=== PATIENT | female | born 1990 | race Caucasian/White ===

== ENCOUNTER 2025-04-22 19:12 | Emergency (ER) | payer OTHER, SELFPAY ==
[2025-04-22 19:15] VITALS: BP 149/99
--- NOTE | 2025-04-22 19:42 | ED.GENMED ---
History of Present Illness
General
Chief Complaint: Ear Problem
Source: patient
Exam Limitations: none
Time Seen by Provider: 04/22/25 19:23
Nursing documentation reviewed up to this point in time: agreed with
History of Present Illness
History of Present Illness:
35-year-old female with history as noted presents to the ER for evaluation of left ear/facial pain. Patient reports that she started with URI last week (cough, congestion) and about 3 days ago started with bilateral ear pain. She says that today
she went to see her primary doctor earlier today and was diagnosed with bilateral ear infection and was started on amoxicillin. She says that as the day went on she started to have worsening pain particular in the left ear and left side of her
face/jaw. She describes an intense shooting pain from the ear and anterior towards the jaw on the left side. No clear trigger for this abrupt worsening. Has not responded well to Tylenol. Came to the ER for assessment. She denies sore throat.
She denies any similar symptoms in the past.
Past History
Past History
ED Past Medical History: Asthma, Other and Other
ED Past Surgical History: Tonsilectomy
Social History
Tobacco: Non-smoker
Alcohol: Occasional
Drug: Marijuana (THC tincture)
Personal:
Living: with family
Employment: Employed
Review of Systems
Review of Systems
All Other Systems: ROS reviewed and negative except as documented in HPI and ROS
Constitutional: Denies fever or chills
EENT: Reports other (Ear pain); Denies sore throat or runny nose
Respiratory: Denies cough
Cardiac: Denies chest pain
Neurological: Denies dizzy or headache
Phy Exam
Physical Exam
Physical Exam:
General: Awake, alert, oriented x3; no acute distress
Head: Normocephalic, atraumatic
Eyes: Conjunctiva normal, EOMI
Ears: External ears appear normal bilaterally without any drainage or erythema/swelling; no tenderness of the mastoid processes bilaterally; right ear canal is clear, some slight bulging of the TM on the right but positive light reflex and no
erythema; left ear canal clear, more significant bulging noted with appreciable effusion, slight erythema, no perforation and positive light reflex
Throat: Airway intact, handling secretions, midline uvula, no oropharyngeal erythema; good dentition
Face: No rash noted in area of concern, mild tenderness over the left TMJ and along the mandibular line but no appreciable swelling, erythema, masses noted
Neck: Trachea midline, supple without meningismus, no appreciable adenopathy
Lungs: Clear to auscultation bilaterally, no wheezing, rales, rhonchi
Heart: Regular rate
Neuro: Cranial nerves intact, speech fluid
Skin: No rash noted
Extremities: Warm and well-perfused
Scores
Heart Failure Risk
Heart Failure Risk Score: Not Applicable
Heart Score for Chest Pain Patients
STEMI patient?: Not applicable
Withdrawal Assessment of Alcohol
Withdrawal Assessment Completed?: Not applicable
Course
Orders/Labs/Results
Orders:
Orders
04/22/25 19:40
Prednisone [Deltasone] 50 mg PO NOW STA
Tramadol HCl [Ultram] 50 mg PO NOW STA
04/22/25 20:38
Ketorolac [Toradol] 30 mg IM NOW STA
Vital Signs
Initial and Last Documented VS:
Initial Vital Signs
Temp Pulse Resp BP Pulse Ox
37.1 C 103 16 149/99 98
04/22/25 19:15 04/22/25 19:15 04/22/25 19:15 04/22/25 19:15 04/22/25 19:15
Last Documented Vital Signs
Temp Pulse Resp BP Pulse Ox
37.1 C 87 18 123/81 98
04/22/25 19:15 04/22/25 20:38 04/22/25 20:38 04/22/25 20:38 04/22/25 20:38
MDM/Problems Addressed
Differential Diagnosis Includes:
Otitis media, eustachian tube dysfunction, TMJ, trigeminal neuralgia, early shingles
MDM/Problems Addressed:
35-year-old female presents to the ER with bilateral ear pain worsening on the left side with radiation towards the jaw. Recently had URI, earlier today diagnosed with bilateral ear infection by primary and started on amoxicillin, worsening
left-sided pain with radiation towards the jaw which prompted ER referral. Vitals and exam as above. Agree with diagnosis of otitis media, agree with antibiotics. No signs of perforation, suspect jaw pain referred from left ear. Will treat
symptomatically. Unfortunately patient has history of gastric bypass so we will try to avoid NSAIDs. Has not responded well to Tylenol. Allergic to oxycodone. Can trial tramadol, trial steroids.
Patient still quite symptomatic after initial round of medication�will trial one-time dose of Toradol.
Patient feeling better after treatment here. Clinical exam stable. Stable for discharge to follow-up with ENT. Spoke about follow-up plan and return precautions, all questions answered.
*Pulse Oximetry
SaO2: 98
Oxygen Mode of Delivery: Room air
Patient hypoxic: no (98%)
*Critical Care Note
Total Time (30-74mins, 75-104mins- exclusive of procedures): Not Applicable
Data Reviewed
Source: patient and records
ED Attending Note
-
Portions of this chart may have been created with voice recognition software.� Occasional wrong word or��sound alike� substitutions may have occurred due to the inherent limitations of voice recognition software.
Discharge Plan
Departure
Patient Disposition: Home (Routine Discharge)
Date of Disposition: 04/22/25
Time of Disposition: 21:39
Patient with high blood pressure during this ER visit?: Yes
Discharge Problem:
Otitis media, Pain in lower jaw
Instructions: Serous Otitis Media (DC)
Prescriptions:
New
prednisone 10 mg Tablet
See Rx Instructions .ROUTE .COMPLEX Qty: 45 0RF
Rx Instructions:
Take By Mouth:
50 mg daily x3 days, 40 mg daily x3 days,
30 mg daily x3 days, 20 mg daily x3 days,
10 mg daily x3 days
acetaminophen-codeine 300-15 mg tablet
1 tab PO Q4HPRN PRN (Reason: pain) Qty: 10 0RF
No Action
omeprazole 20 MG capsule,delayed release(DR/EC)
20 mg PO DAILY
bupropion HCl 300 MG tablet extended release 24 hr
450 mg PO DAILY
lisdexamfetamine [Vyvanse] 30 MG capsule
30 mg PO DAILY
cholecalciferol (vitamin D3) [Vitamin D3] 50 MCG capsule
50 mcg PO DAILY
topiramate [Qudexy XR] 100 MG capsule,sprinkle,ER 24hr
100 mg PO DAILY
cyanocobalamin (vitamin B-12) 2,500 MCG tablet,chewable
2,500 mcg PO DAILY
ondansetron 4 mg tablet,disintegrating
4 mg PO TID PRN (Reason: nausea and vomiting) Qty: 10 0RF
Referrals:
Mehul Alarcon MD [Active, Otology] - Call in 1-3 days for appt
Referral Note: ENT physician
Jewels Gold CRNP [Family Provider, Family Practice]
Activity Restrictions/Additional Instructions:
Thank you for visiting the Emergency Department at [facility].
1. Please schedule a follow up appointment as directed. Call first thing tomorrow morning to make an appointment.
2. If indicated, please take your medications as instructed and indicated on discharge paperwork.
3. If any of your symptoms do not improve, or persist, or become more severe within 6-12 hours, please return to the emergency department for further care.
4. Please return to the emergency department if you develop a headache, neck pain/stiffness, fever greater than 100.4F, chest pain, shortness of breath, persistent nausea, vomiting, slurred speech, difficulty walking, numbness/tingling, weakness,
signs of infection or any other symptoms that are worrisome to you.
Please call [phone] if you have any questions.
Interventions
Interventions:
*Risk Screen - Suicide Last Done: 04/22/25 19:15
*General Assessment Last Done: 04/22/25 19:55
*Neglect/Abuse Screening Last Done: 04/22/25 19:15
*ED- Fall Risk Assessment Last Done: 04/22/25 19:55
*ED COVID-19 Vaccine History Last Done: 04/22/25 19:55
Discharge Date and Time
Print Language: SINHALA
[2025-04-22] MEDS: DELTASONE 50 MG PO (19:46)
[2025-04-22] MEDS: ULTRAM 50 MG PO (19:46)
[2025-04-22 19:55] VITALS: BMI 26.6
[2025-04-22 20:38] VITALS: BP 123/81
[2025-04-22] MEDS: TORADOL 30 MG IM (20:54)
== END 2025-04-22 21:48 | disposition home or self-care (01) ==
LOC: EMR 19:12
PROVIDERS: EMERGENCY PHYSICIAN Emergency Medicine; FAMILY PHYSICIAN Nurse Practitioner Family
DX: H66.93 Otitis media, unspecified, bilateral (principal); R68.84 Jaw pain; J45.909 Unspecified asthma, uncomplicated; Z88.5 Allergy status to narcotic agent; Z98.84 Bariatric surgery status
CPT/HCPCS: 96372; 99284